=== PATIENT | female | born 1985 | race Caucasian/White ===

== ENCOUNTER 2021-04-03 15:02 | Outpatient (REF) | payer OTHER, SELFPAY ==
[2021-04-03 21:51] LABS: Abs Immature Grans 0.02 10^3/uL (0.0-0.06); Absolute Basophil Count 0.09 10^3/uL (0.0-0.2); Absolute Eosinophil Count 0.22 10^3/uL (0.0-0.7); Absolute Monocyte Count 0.72 10^3/uL (0.1-0.8); Absolute Neutrophil Count 6.51 10^3/uL (1.2-6.7); Basophils % 0.8; HCT 42.4 % (36.0-46.0); HGB 13.7 g/dL (11.2-15.7); Immature Grans % 0.2; Lymphocytes % 30.5; MCH 29.6 pg (27.0-33.0); MCHC 32.3 % (32.0-36.0); MCV 91.6 fL (80-95); MPV 10.1 fL (8.0-11.0); Monocytes % 6.6; Neutrophils % 59.9; Nucleated RBC 0 %; Platelet Count 369 10^3/uL (130-400); RBC 4.63 10^6/uL (3.93-5.22); RDW 12.3 % (11.7-14.6); RDW-SD 41.1 fL; WBC 10.87 10^3/uL (4.4-10.8)
[2021-04-03 21:56] LABS: Absolute Lymphocyte Count 3.32 10^3/uL (1.2-3.4)
[2021-04-03 22:08] LABS: ALT 35 U/L (14-59); AST 20 U/L (15-37); Albumin 4.4 g/dL (3.4-5.0); Alkaline Phosphatase 58 U/L (46-116); Anion Gap 9.9 mmol/L (3-11); BUN 16 mg/dL (7-18); Bilirubin, Total 0.3 mg/dL (0.2-1.0); CO2 28.1 mmol/L (21.0-32.0); CREATININE 0.9 mg/dL (0.55-1.02); Calcium 9.2 mg/dL (8.5-10.1); Chloride 104 mmol/L (98-107); Glucose 87 mg/dL (74-106); Magnesium 2.1 mg/dL (1.8-2.4); Sodium 142 mmol/L (136-145); TSH (W/Ref FT4) 1.07 uIU/mL (0.36-3.74); Total Protein 7.7 g/dL (6.4-8.2)
== END 2021-04-03 15:03 | disposition home or self-care (01) ==
LOC: NCHCN 15:02
PROVIDERS: PCP Pediatrics; Visit Provider Nurse Practitioner Family
DX: R00.2 Palpitations (principal)
CPT/HCPCS: 80053; 83735; 84443; 85025

== ENCOUNTER 2021-06-03 10:42 | Outpatient (REF) | payer OTHER, SELFPAY ==
--- NOTE | 2021-06-03 09:30 | PAPFT_PTH ---
PATIENT: Leonor Cantu LOC: [facility]#:[id number] AGE/SX: 36/F ROOM: RE06/03/[address]: Monet Mahoney : 1985 BED: DIS: 06/03/2021 SPEC #: [id number] RECD: 06/03/21 15:29 STATUS: TANNER JESUS #: [id number] GRISELDA: 06/03/21 09:[address]: Monet Mahoney DEPT: [facility] Cytology RECD BY: Jo Ann Marquez ENTERED: 06/03/21 15:30 SP TYPE: PAPFT OT DR: Unknown,Unknown Tissues: 1 - CX/ENDOCX FOR PAP SMEARS Procedures: PAP THIN PREP/UVM Screening HPV DNA PROBE Comments: [id number] (CHLAMYDIA/GC)
[2021-06-04 15:48] LABS: Chlamydia Result Negative (Negative); GC Result Negative (Negative)
== END 2021-06-03 10:43 | disposition home or self-care (01) ==
LOC: NCHCN 10:42
PROVIDERS: Visit Provider Nurse Practitioner Family
DX: Z12.4 Encounter for screening for malignant neoplasm of cervix (principal); Z11.3 Encounter for screening for infections with a predominantly sexual mode of transmission; Z11.51 Encounter for screening for human papillomavirus (HPV)
CPT/HCPCS: 87491; 87591; 88142; 87624

== ENCOUNTER 2022-09-02 18:41 | Outpatient (REF) | payer BC, SELFPAY ==
[2022-09-02 21:08] LABS: HCT 42.3 % (36.0-46.0); HGB 13.8 g/dL (11.2-15.7); MCH 29.3 pg (27.0-33.0); MCHC 32.6 % (32.0-36.0); MCV 90 fL (80-95); MPV 10.1 fL (8.0-11.0); Platelet Count 375 10^3/uL (130-400); RBC 4.71 10^6/uL (3.93-5.22); RDW 12.3 % (11.7-14.6); RDW-SD 41.1 fL; WBC 9.71 10^3/uL (4.4-10.8)
[2022-09-02 21:30] LABS: Hemoglobin A1C 5.5 % (<5.7)
[2022-09-02 21:32] LABS: Calculated LDL 111 mg/dL (<100); Cholesterol 181 mg/dL (<200); HDL Cholesterol 50 mg/dL (40-60); TSH (W/Ref FT4) 1.37 uIU/mL (0.36-3.74); Triglyceride 103 mg/dL (<150)
== END 2022-09-02 18:42 | disposition home or self-care (01) ==
LOC: NCHCN 18:41
PROVIDERS: Visit Provider Nurse Practitioner Family
DX: N93.9 Abnormal uterine and vaginal bleeding, unspecified (principal); R14.0 Abdominal distension (gaseous); L65.9 Nonscarring hair loss, unspecified; Z13.1 Encounter for screening for diabetes mellitus; Z13.220 Encounter for screening for lipoid disorders
CPT/HCPCS: 80061; 85027; 83036; 84443

== ENCOUNTER 2022-10-05 14:48 | Outpatient (REF) | payer BC, SELFPAY ==
[2022-10-07 09:47] LABS: HBs Antibody, Qual Positive (See Note); HBs Antibody, Quant 12.1 mIU/mL (See Note); Hepatitis B Core Antibody Negative (Negative); Hepatitis B surface Ag Negative (Negative); Hepatitis C Ab w Rflx HCV PCR Negative (Negative)
[2022-10-07 10:00] LABS: HIV-1/2 Ag & Ab Screen Negative (Negative)
== END 2022-10-05 14:49 | disposition home or self-care (01) ==
LOC: NCHCN 14:48
PROVIDERS: Visit Provider Nurse Practitioner Family
DX: N83.291 Other ovarian cyst, right side (principal); Z20.5 Contact with and (suspected) exposure to viral hepatitis; Z11.4 Encounter for screening for human immunodeficiency virus [HIV]; Z11.59 Encounter for screening for other viral diseases
CPT/HCPCS: 86704; 86706; 86803; 87340; 87389

== ENCOUNTER 2022-10-28 04:34 | Outpatient (CLI) | payer BC, SELFPAY ==
[2022-10-28 15:12] LABS: HCT 40.2 % (36.0-46.0); HGB 13.3 g/dL (11.2-15.7); MCH 29.7 pg (27.0-33.0); MCHC 33.1 % (32.0-36.0); MCV 90 fL (80-95); MPV 9.6 fL (8.0-11.0); Platelet Count 334 10^3/uL (130-400); RBC 4.48 10^6/uL (3.93-5.22); RDW 12.2 % (11.7-14.6); RDW-SD 40.9 fL; WBC 12.02 10^3/uL (4.4-10.8)
[2022-10-28 15:50] LABS: Anion Gap 7.6 mmol/L (3-11); BUN 12 mg/dL (7-18); CO2 28.4 mmol/L (21.0-32.0); Chloride 106 mmol/L (98-107); Estimated GFR 74.88 (mL/min/1.73m2); Glucose 99 mg/dL (74-106); Sodium 142 mmol/L (136-145)
[2022-10-28 15:59] LABS: HCG Qual (Serum) Negative
== END 2022-10-28 04:35 | disposition home or self-care (01) ==
LOC: LBO 04:34
PROVIDERS: Visit Provider Obstetrics & Gynecology Gynecology
DX: N83.291 Other ovarian cyst, right side (principal); Z01.818 Encounter for other preprocedural examination; Z01.812 Encounter for preprocedural laboratory examination
CPT/HCPCS: 36415; 80048; 85027; 86850; 86900; 86901; 84703

== ENCOUNTER 2022-10-29 05:58 | Day surgery (SDC) | payer BC, SELFPAY ==
[2022-10-29] VITALS (13 sets, daily range): BP systolic 95–117; BP diastolic 62–80; PULSE 65–79; RESP 10–19; TEMP 36.3–37; O2SAT 90–99; BMI 35.4
[2022-10-29] MEDS: Lactated Ringers 1,000 ML 125 ML IV (06:53)
--- NOTE | 2022-10-29 07:01 | W.ANESPRE ---
General Info Date of Service Date Performed: 10/29/22 Height: 5 ft 6 in Weight: 99.5 kg Body Mass Index (BMI): 35.4 Surgical Procedure: Operation Date: 10/29/22 07:40 Proposed Procedure Side Surgeon p Ovarian Cystectomy Laparotomy/ Bi-Lat Salpingectomy Right Hien Saab MD Meds Allergies and Home Medications Allergies Allergy/AdvReac Type Severity Reaction Status Date / Time No Known Allergies Allergy Verified 10/29/22 06:20 Home Medication Medication Instructions Recorded bupropion HCl 150 mg 24 hr tablet, 150 mg PO HS 09/25/22 extended release levonorgestrel 21 mcg/24 hours (8 1 device intrauterine ONCE 09/25/22 yrs) 52 mg intrauterine device (Mirena) oxycodone-acetaminophen 5 mg-325 1 tab PO Q6H PRN pain #7 tabs 10/28/22 mg tablet (Percocet) Current Visit Medications: Current Medications Generic Name Dose Route Start Last Admin Trade Name Freq PRN Reason Stop Dose Admin Ringer's Solution 1,000 mls @ 125 mls/hr 10/29/22 06:48 10/29/22 06:53 IV 11/28/22 06:47 125 mls/hr INFUSION ALEJANDRO Administration Sodium Chloride 500 mls @ 0 mls/hr 10/29/22 06:49 Saline 500ml Bag IV 11/28/22 06:48 PRN PRN As Directed IV Miscellaneous Supplies 1 each 10/29/22 06:50 Iv Access IV 11/28/22 06:49 DIRECTED ALEJANDRO Sodium Chloride 0 ml 10/29/22 06:49 Normal Saline Flush 10 Ml Syr IVP 11/28/22 06:48 PRN PRN PFSH Active Problems Active Problems: Problem Status Onset Code Screening and evaluation for female sterilization Z30.09 Right ovarian cyst N83.201 IUD (intrauterine device) in place Z97.5 Pelvic pain R10.2 Anxiety F41.9 Depression F32.A Surgical History Surgical History H/O breast surgery breast reduction Tobacco Smoking/Tobacco Use Status: Never Alcohol Alcohol Intake: current Alcohol intake frequency: a few times a month Substance Use Substance use: Never Substance use type: does not use Prental History History 0 Para Hx # Term Pregnancies Multiple births Hx # Pregnancies Ectopic pregnancies AB induced Hx Number of Living Children AB spontaneous Vital Signs and Lab Results Vital Signs Most Recent Vital Signs in EMR: Most Recent Vital Signs Temp Pulse Resp BP Pulse Ox 36.5 C 78 18 113/80 98 10/29/22 06:15 10/29/22 06:15 10/29/22 06:15 10/29/22 06:15 10/29/22 06:15 Lab Results Blood Type / Crossmatch: Patient ABO/Rh O Positive 10/28/22 Antibody Screen NEGATIVE 10/28/22 Complete Blood Count: White Blood Count 12.02 10^3/uL (4.4-10.8) H 10/28/22 14:58 Red Blood Count 4.48 10^6/uL (3.93-5.22) 10/28/22 14:58 Hemoglobin 13.3 g/dL (11.2-15.7) 10/28/22 14:58 Hematocrit 40.2 % (36.0-46.0) 10/28/22 14:58 Platelet Count 334 10^3/uL (130-400) 10/28/22 14:58 Complete Metabolic Panel: Sodium 142 mmol/L (136-145) 10/28/22 14:58 Potassium 4.0 mmol/L (3.5-5.1) 10/28/22 14:58 Chloride 106 mmol/L (98-107) 10/28/22 14:58 Carbon Dioxide 28.4 mmol/L (21.0-32.0) 10/28/22 14:58 BUN 12 mg/dL (7-18) 10/28/22 14:58 Creatinine 1.0 mg/dL (0.55-1.02) 10/28/22 14:58 Est GFR (CKD-EPI 2020) 74.88 (mL/min/1.73m2) 10/28/22 14:58 Calcium 9.0 mg/dL (8.5-10.1) 10/28/22 14:58 Glucose 99 mg/dL (74-106) 10/28/22 14:58 Liver Function Panel: No Data to Display Coagulation Panel: No Data to Display Cardiac Panel: No Data to Display Arterial Blood Gas: No Data to Display Venous Blood Gas: No Data to Display Pancreas Panel: No Data to Display Thyroid Panel: No Data to Display Infectious Disease: HIV (1&2) Ag and Ab, 4th Generation Negative (Negative) 10/05/22 11:15 Hepatitis B Surface Antigen Negative (Negative) 10/05/22 11:15 Hepatitis C Antibody Negative (Negative) 10/05/22 11:15 Blood Cultures: No Data to Display Toxicology Panel: No Data to Display Panel: Serum HCG, Qualitative Negative 10/28/22 14:58 Anesthesia Assessment and Plan Anesthesia History Personal History: No History of Anesthesia Complications Family History: No Family History of Anesthesia Complications Exercise Tolerance Exercise Tolerance: Metabolic Equivalents>4 Pertinent Negatives Pertinent Negatives: No Symptoms of GERD, No Major Cardiovascular Symptoms or Complaints, No Major Pulmonary Symptoms or Complaints and No History of CVA/TIA Cardiac & Pulmonary Exam Cardiac Exam: Normal S1/S2 Heart Sounds Pulmonary Exam: Clear Bilateral Breath Sounds Implantable Cardiac Device Does patient have a Pacemaker or an ICD?: No Airway Exam Known Difficult Airway: No Mallampati Class: 2 Mouth Opening: Normal (> 3cm) Thyromental Distance: Greater than 3 cm Neck Range of Motion: Full ROM Neck Circumference: Normal Teeth Condition: Normal Dentition ASA Classification ASA Score: ASA 2 Emergency Case?: No NPO Status NPO Status: NPO Clears >2 hours, Solids >8 hours Status Status: Negative HCG Anesthesia Plan Resuscitation Status: Full Code Anesthesia Technique: General Anesthesia Airway Planned: Endotracheal Tube Monitors Used: Standard Monitors
[2022-10-29] MEDS: Bupivacaine 0.25% Pres-Free 30 ML VIAL (08:32)
--- NOTE | 2022-10-29 08:32 | FALL_PTH ---
PATIENT: Leonor Cantu LOC: [facility] U#:[id number] AGE/SX: 37/F ROOM: RE10/29/[address]: Hien Saab : 1985 BED: DIS: 10/29/2022 SPEC #: [id number] RECD: 10/29/22 12:48 STATUS: TANNER LEE #: [id number] GRISELDA: 10/29/22 08:[address]: Hien Saab DEPT: Surgical Specimen RECD BY: Jo Ann Marquez ENTERED: 10/29/22 12:49 SP TYPE: Fall OTHR DR: Unknown,Unknown Tissues: 1 - FALLOPIAN TUBE (STERILIZATION) 2 - FALLOPIAN TUBE (STERILIZATION) 3 - OVARY BIOPSY Procedures: GROSS AND MICRO LEVEL 2 GROSS AND MICRO LEVEL 5 Comments: [id number]
--- NOTE | 2022-10-29 09:28 | W.PM.DSUDISC ---
Date of service: 10/29/22 Time of Service: 09:28 Discharge Plan Disposition Patient Disposition: Home Discharge Details Reason For Visit: Tubal sterilization and right ovarian cystectomy Attending Provider: Hien Saab Primary Care Provider: Unknown,Unknown Home Meds and New Rx's Prescriptions: No Action bupropion HCl 150 mg tablet extended release 24 hr 150 mg PO HS Mirena 21 mcg/24 hours (8 yrs) 52 mg intrauterine device 1 device intrauterine ONCE Rx Instructions: as a single dose oxycodone-acetaminophen [Percocet] 5-325 mg tablet 1 tab PO Q6H MDD 4 PRN (Reason: pain) Qty: 7 0RF Discharge Instructions Additional Instructions: You may use Percocet 5/325 1 tablet every 6 hours as needed for severe pain. You also may use ibuprofen 600 mg at the same time that you are using the Percocet. Keep the Steri-Strips on your incisions for 48 hours. You may change the Band-Aids as needed. Keep your appointment in the office for postop check in approximately 2 weeks. Stand Alone Forms: [facility] Post Instrument Technician Apprentice SurgeryW/Incision Activity:: Activity as Tolerated Diet:: As Tolerated Discharge Orders Discharge Orders: Discharge Order (Routine); Ordered 10/29/22 Ordered By: Hien Saab
--- NOTE | 2022-10-29 09:31 | ROE_ITS ---
Date of service: 10/29/22 Time of Service: 09:31 Operative Note Operative Note DATE OF PROCEDURE: 10/29/22 PRE-OP DIAGNOSIS: Undesired fertility. Right-sided dermoid cyst PROCEDURE: Laparoscopic bilateral salpingectomy. Right ovarian cystectomy SURGEON: Hien Saab ASSISTING SURGEON: Amairani Perales ANESTHESIA TYPE: General LMA/ETT Refer to Anesthesia Record ESTIMATED BLOOD LOSS: 0 PATHOLOGY: other (Bilateral fallopian tubes, right dermoid cyst) COMPLICATIONS: None Patient was transported to: PACU Patient's condition: stable Indications: 37-year-old G0 female who requested permanent sterilization at the time of a laparoscopic right sided dermoid cystectomy. She currently has a Mirena IUD in place for contraception and for control of menorrhagia. She wishes to maintain the Mirena IUD. Findings: Smooth-walled enlarged right ovarian cyst occupying the posterior cul-de-sac. No ovarian torsion present. The cyst leaked liquid fat during the procedure. Dark hair was noted through the punctate opening. Left adnexa normal in appearance. Uterus small, irreg contour. Normal upper abdomen. Mirnea IUD string present at the external cervical os Procedure Description: Patient was taken to the operating room where she was placed in the dorsal supine position and endotracheal anesthesia was administered without difficulty. SCDs were in place. She was placed in the dorsal lithotomy position in [place] stirrups in a neurologically neutral position. A surgical timeout was performed. She was prepped and draped in the usual sterile fashion. A conrad catheter was placed to gravity drainage. A [employer] uterine manipulator was inserted into the uterine cavity and left in place for the remainder of the case. The umbilical fold was infiltrated with 0.25% Marcaine without epinephrine and 12 mm vertical skin incision was made in the umbilicus. Through this incision a varies needle connected to carbon dioxide gas was inserted into the abdomen and intra-abdominal placement confirmed by drop in the intra- abdominal pressure. Once a pneumoperitoneum was established a 12 mm Visiport trocar was introduced into the abdomen under direct visualization. The patient was then placed in Trendelenburg and 2 sites on the abdomen approximately 6 cm diagonal to the right of and left of the umbilical incision were transilluminated, the skin infiltrated with 0.25% Marcaine, incised with a scalpel and under direct visualization two 5 mm ports were placed in the right and left lower quadrants respectively. The abdomen was inspected with the above-noted findings. The left fallopian tube located and followed out to its fimbriated end and a LigaSure electrocautery device was used to clamp cauterize and transect the fimbria from the left mesosalpinx to the level of the left uterine cornua. The left fallopian tube was then delivered through the 12 mm umbilical port and passed off of the operative field. A similar technique was carried out on the right fallopian tube with care taken to dissect the fallopian tube from the serosal surface of the inferior portion of the dermoid cyst. Once it had been removed from the mesosalpinx and transected from the uterine cornua the right fallopian tube was then delivered through the umbilical port. Both fallopian tube pedicles were inspected and noted to be hemostatic. The serosal surface of the ovarian cyst was undermined, clamped, cauterized and transected caudal to cephalad along the length of the right ovarian cyst. The cyst wall was then peeled off of the underlying cyst until the majority of the cyst was mobilized. A 3mm opening along the upper portion of the cyst leaked sma ll amount of liquid fat. The opening was closed with laparoscopic graspers and the remaining cyst was freed from the ovarian capsule. The cyst was then placed in an endo-catch bag and and delivered through the umbilical port, intact. The pelvis was then copiously irrigated with normal saline which was then suction aspirated. The pedicles were then inspected, noted to be hemostatic and under direct visualization the two 5 mm ports were removed, pneumoperitoneum reduced, and the umbilical port removed. The fascia of the umbilical port site was reapproximated with interrupted suture of 0 Vicryl. The skin of all trocar sites was reapproximated with 4-0 Monocryl and covered with steri-strips and bandaids. Instruments were removed from her vagina and the conrad catheter discontinued. She was placed in the supine position, awakened, extubated and transported to recovery area in stable condition. All sponge lap needle counts are correct x2.
[2022-10-29] MEDS: HYDROmorphone 2 MG/ML SYR IVP ×3 (09:59→10:21)
[2022-10-29] MEDS: Normal Saline 10 ML VIAL IJ (09:59)
[2022-10-29] MEDS: fentaNYL 100 MCG/2 ML VIAL IVP (10:44)
--- NOTE | 2022-10-29 11:38 | W.ANESPOSTOP ---
Postoperative Evaluation Date, Time and Location Date Performed: 10/29/22 Time Performed: 11:38 Patient Location: Day Surgery Unit Vital Signs Most Recent Imported Vital Signs: Most Recent Vital Signs Temp Pulse Resp BP Pulse Ox 36.5 C 70 17 97/66 L 96 10/29/22 11:08 10/29/22 11:08 10/29/22 11:08 10/29/22 11:08 10/29/22 11:08 Pain Score Most Recent Pain Score: Most Recent Pain Score Pain Level 4 10/29/22 11:08 Assessment Mental Status: Awake (Alert & Oriented to Patient Baseline) Airway and Respiratory Function: Patent airway with normal (patient baseline) respiratory exam Cardiovascular Function: Hemodynamically Stable Hydration Status: Adequately Hydrated Nausea & Vomiting: No Nausea or Vomiting Pain: Pt. Denies Any Pain Peripheral Nerve Block: Patient did not receive a nerve block
[2022-10-29] MEDS: oxyCODONE 5 mg/Acetaminophen 325 mg TAB PO (11:54)
== END 2022-10-29 12:52 | disposition home or self-care (01) ==
PROVIDERS: Visit Provider Obstetrics & Gynecology Gynecology
PROC: (CPT 58925; principal; 2022-10-29 07:30)
DX: Z30.2 Encounter for sterilization (principal); D27.0 Benign neoplasm of right ovary
CPT/HCPCS: 58661; 58662; 81025; 88305; 88302; 88307; J0131; J1100; J1170; J2250; J2405; J3010

== ENCOUNTER 2022-10-30 23:28 | Observation (INO) | payer BC, SELFPAY ==
[2022-10-31 01:50] VITALS: BP 116/77; PULSE 112; RESP 20; TEMP 36.8; O2SAT 97
[2022-10-31 01:53] VITALS: BP 116/77; PULSE 112; RESP 20; TEMP 36.8; O2SAT 97
[2022-10-31] MEDS: Lactated Ringers 1,000 ML 125 ML IV ×2 (02:10→09:54)
[2022-10-31] MEDS: Ketorolac 30 MG/ML VIAL IVP ×3 (02:10→13:37)
--- NOTE | 2022-10-31 02:30 | HPE_ITS ---
Date of service: 10/31/22 Time of Service: 02:30 Assessment and Plan Assessment and plan (1) H/O ovarian cystectomy: Status: Acute (2) H/O bilateral salpingectomy: Status: Acute (3) RUQ abdominal pain: Status: Acute Assessment and plan: New onset today. Unclear etiology. Pain is localized to RUQ. Will continue to follow VS, including temp and administer IV Toradol and Dilaudid PRICING CONSULTANT. Repeat CBC CMP in am. Gen Surgery consult if pain not improving. Sips of H2O. History of Present Illness History of Present Illness Chief Complaint: RUQ pain Narrative: Pt is a 37yo G0 female s/p uncomplicated bilateral laparoscopic salpingectomy and removal of right sided dermoid cyst on at [facility] on 09/28/22. She was discharged to home from [facility] with Rx for Percocet 5/325mg and Ibuprofen 600mg every 6 hours as needed for pain. No issues until the afternoon of POD 1 when developed sharp RUQ pain that became intractable and worse with inspiration and supine position. No emesis. + Flatus, no BM. No fever or chills. Pt underwent eval at [facility] where CT showed normal RUQ, trace of pleural fluid, potential ileus of proximal small bowel. Afebrile. WBC 16.4, Abs Neut 10.8, Lactic Acid 2.6. Nl LFTs. The ER provider at [facility] felt that she is not appropriate for discharge to home and had ask the general surgeon at the hospital to consider admitting the patient for observation. Accepted the patient in transfer from [facility] for admission to the center for observation. Review of Systems Narrative: Pt reports little relief from 2.5 mg of IV Diluadid she received at [facility]. All systems reviewed & are unremarkable except as noted in HPI and below Constitutional Constitutional: Reports as per HPI Gastrointestinal Gastrointestinal: Reports abdominal pain (RUQ below rib cage) and Denies diarrhea Comments: incisions have original bandaids in place. Genitourinary Comments: Minimal vaginal bleeding Musculoskeletal Musculoskeletal: Reports system reviewed and no additional complaints, except as documented Psychiatric Comments: Had been well until onset of RUQ pain PFSH All Active Problems (Updated 10/31/22 @ 03:01 by Hien Saab MD) RUQ abdominal pain (Acute) H/O ovarian cystectomy (Acute) 10/29/22. Laparoscopic: R dermoid cyst. H/O bilateral salpingectomy (Acute) 10/29/22 for purpose of sterilization Right ovarian cyst (Acute) IUD (intrauterine device) in place (Acute) Mirena for contraception. Pelvic pain (Acute) Anxiety (Chronic) Depression (Chronic) Surgical History (Updated 10/31/22 @ 02:49 by Hien Saab MD) H/O breast surgery breast reduction Social History (Updated 09/25/22 @ 21:40 by Hien Saab MD) Smoking/Tobacco Use Status: Never Smoking risk assessment performed?: Yes Alcohol Intake: current Alcohol Intake frequency: a few times a month Drug use: Never Substance use type: does not use Household members: significant other and other Details: Derick Number of Children: 0 Education Level: college Details: BS in science. current occupation: Industrial Relations Worker. Sexually active: Yes Do you feel safe at home: Yes Do you feel safe in your relationship?: Yes History History 0 Para Hx # Term Pregnancies Multiple births Hx # Pregnancies Ectopic pregnancies AB induced Hx Number of Living Children AB spontaneous Meds Allergies and Home Medications Allergies Allergy/AdvReac Type Severity Reaction Status Date / Time No Known Allergies Allergy Verified 10/29/22 06:20 Home Medications Medication Instructions Recorded Confirmed Type bupropion HCl 150 mg 24 hr tablet, 150 mg PO HS 09/25/22 10/31/22 History extended release levonorgestrel 21 mcg/24 hours (8 1 device intrauterine ONCE 09/25/22 10/31/22 History yrs) 52 mg intrauterine device (Mirena) oxycodone-acetaminophen 5 mg-325 1 tab PO Q6H PRN pain #7 tabs 10/28/22 10/31/22 Rx mg tablet (Percocet) Exam Narrative Exam Narrative: Sitting in bed in semi-fowlers position. Grimacing and breathing shallow rapid breaths. Const General: in distress Nutritional Appearance: obese Orientation: alert, awake and oriented x3 Resp Effort & Inspection: able to speak in complete sentences and tachypneic (during increase in pain) Auscultation: clear to auscultation bilaterally Percussion: percussion normal Cardio Palpation: normal PMI Rate: regular rate Rhythm: regular rhythm Pulses: normal peripheral pulses GI Inspection: no abdominal wall ecchymosis, non-distended and incision (dressings covering trochar sites.) Palpation: soft, no hepatosplenomegaly (Pt's RUQ tender to touch, no referred pain), firm and tender Auscultation: hypoactive bowel sounds Rectal Exam - female: deferred General: deferred Back/Spine/Pelvis Back: no CVA tenderness Skin General skin exam: no rashes or lesions noted Extrem General: normal to inspection Psych Appearance: other (Pt grimacing in pain. Eyes closed, focusing on breathing thru pain) Mental Status: mental status grossly normal Mood: anxious mood Affect: normal affect Attitude: cooperative Thought Process: normal Thought Content: normal Insight: insight good Judgment: judgment good Results Imaging Abdomen CT scan report/results: report reviewed Labs 10/31/22 06:00 10/31/22 06:00 Labs: I reviewed report of CMP and CBC. Last Vital Signs Temp 98.2 F 10/31/22 01:53 Pulse 112 H 10/31/22 01:53 Resp 20 10/31/22 01:53 BP 116/77 10/31/22 01:53 Pulse Ox 97 10/31/22 01:53 PAWSS Pt Consumed Any Amount of Alcohol Within the Last 30 days OR had positive JORDY Upon Admission: No Time Spent Time spent with Patient: 40-54 minutes Time was spent: preparing to see the patient(eg.review tests), obtaining and/or reviewing separately otained hiistory, ordering medications,tests, procedures and counseling the patient
[2022-10-31] MEDS: Normal Saline Flush 10 ML SYR ×3 (02:34→06:44)
[2022-10-31] MEDS: HYDROmorphone 2 MG/ML SYR IVP ×2 (03:21→06:30)
[2022-10-31 03:30] VITALS: BP 119/73; PULSE 100; RESP 16; TEMP 36.8; O2SAT 97
[2022-10-31 06:00] VITALS: BP 114/76; PULSE 85; RESP 16; TEMP 36.8; O2SAT 97
[2022-10-31 06:13] LABS: HGB 11.5 g/dL (11.2-15.7); MCH 29.7 pg (27.0-33.0); MCHC 32.9 % (32.0-36.0); MCV 90 fL (80-95); MPV 9.5 fL (8.0-11.0); Platelet Count 257 10^3/uL (130-400); RBC 3.87 10^6/uL (3.93-5.22); RDW 12.7 % (11.7-14.6); RDW-SD 41.6 fL
[2022-10-31 06:40] LABS: ALT 16 U/L (14-59); AST 7 U/L (15-37); Albumin 3.2 g/dL (3.4-5.0); Alkaline Phosphatase 56 U/L (46-116); Anion Gap 7.3 mmol/L (3-11); BUN 7 mg/dL (7-18); Bilirubin, Total 0.5 mg/dL (0.2-1.0); CO2 26.7 mmol/L (21.0-32.0); CREATININE 0.7 mg/dL (0.55-1.02); Calcium 8.1 mg/dL (8.5-10.1); Chloride 105 mmol/L (98-107); Estimated GFR 114.88 (mL/min/1.73m2); Glucose 113 mg/dL (74-106); Potassium 3.8 mmol/L (3.5-5.1); Sodium 139 mmol/L (136-145); Total Protein 6.3 g/dL (6.4-8.2)
[2022-10-31 07:16] VITALS: BP 112/77; PULSE 85; RESP 18; TEMP 36.8; O2SAT 97
[2022-10-31] MEDS: Docusate Sodium 100 MG CAP PO (08:03)
[2022-10-31] MEDS: oxyCODONE 5 mg/Acetaminophen 325 mg TAB 1 TAB PO (10:40)
[2022-10-31 12:06] VITALS: BP 121/79; PULSE 87; RESP 20; TEMP 36.8; O2SAT 98
--- NOTE | 2022-10-31 13:30 | DSE_ITS ---
Date of service: 10/31/22 Time of Service: 13:31 DS: Diagnosis Discharge Diagnosis (1) H/O ovarian cystectomy: Status: Acute (2) H/O bilateral salpingectomy: Status: Acute (3) RUQ abdominal pain: Status: Acute Discharge Plan Disposition Patient Disposition: Home Condition: Improving Discharge Details Reason For Visit: Abdomen Pain,Partial Illeus Admit Date/Time: 10/31/22 01:36 Admit Provider: Hien Saab Attending Provider: Hien Saab Primary Care Provider: Unknown,Unknown Hospital Course Hospital Course: Pt is a 37yo G0 female s/p uncomplicated bilateral laparoscopic salpingectomy and removal of right sided dermoid cyst on at [facility] on 09/28/22. She was discharged to home from [facility] with Rx for Percocet 5/325mg and Ibuprofen 600mg every 6 hours as needed for pain. No issues until the afternoon of POD 1 when developed sharp RUQ pain that became intractable and worse with inspiration and supine position. No emesis. + Flatus, no BM. No fever or chills. Pt underwent eval at [facility] where CT showed normal RUQ, trace of pleural fluid, potential ileus of proximal small bowel. Afebrile. WBC 16.4, Abs Neut 10.8, Lactic Acid 2.6. Nl LFTs. She was transfered to [facility] and observed overnight and provided Toradol and additional pain control. By the morning of POD3 she her pain had subsided to a 3, was tolerating regular diet and had flatus and she was able to walk in the corridor unassisted. She was discharged to home with diagnosis of postop laparoscopy pain secondary to CO2 gas irritation of her R sided diaphragm. She will have her Percocet refilled and continue to take Ibuprofen. Pt will keep her previously scheduled postop appointment in approximately 2 weeks.. Home Meds and New Rx's Prescriptions: No Action bupropion HCl 150 mg tablet extended release 24 hr 150 mg PO HS Mirena 21 mcg/24 hours (8 yrs) 52 mg intrauterine device 1 device intrauterine ONCE Rx Instructions: as a single dose oxycodone-acetaminophen [Percocet] 5-325 mg tablet 1 tab PO Q6H MDD 4 PRN (Reason: pain) Qty: 7 0RF Discharge Instructions Activity:: Activity as Tolerated Equipment/Supplies:: No Equipment Needed Diet:: As Tolerated Discharge Orders Discharge Orders: Discharge Order (Routine); Ordered 10/31/22 Ordered By: Hien Saab DS: Summary Summary Time spent discussing smoking cessation with patient: more than 10 minutes Time Spent with Patient providing and/or coordinating discharge services: Less than 30 minutes Status at Discharge Functional status at discharge: independent ambulation Overall status at discharge: patient is progressing back to baseline Mental Status: mental status grossly normal Speech and Movement: speech and movement normal Mood: anxious mood Affect: normal affect Exam Const General: no acute distress (More comfortable sitting in bedside chair) Nutritional Appearance: obese Orientation: alert, awake and oriented x3 Neck Neck: normal visual inspection Resp Effort & Inspection: normal respiratory effort and able to speak in complete sentences Auscultation: clear to auscultation bilaterally Cardio Rate: regular rate Rhythm: regular rhythm GI Inspection: normal to inspection, no abdominal wall ecchymosis and incision (Remain covered with Steri-Strips and Band-Aids) Palpation: soft, no hepatosplenomegaly, no guarding and tender in the RUQ Auscultation: normal bowel sounds Rectal Exam - female: deferred General: deferred Skin General skin exam: no rashes or lesions noted Extrem General: normal to inspection Psych Appearance: grossly normal Mental Status: mental status grossly normal Speech and Movement: speech and movement normal Mood: anxious mood Affect: normal affect DS: Data Vitals/I&O Vitals and I&O: Vital Signs Temperature 98.2 F 10/31/22 12:06 Temperature Source Oral 10/31/22 12:06 Pulse 87 10/31/22 12:06 Pulse Rhythm Regular 10/31/22 07:16 Respiratory Rate 20 10/31/22 12:06 Respiratory Effort Normal, Non-Labored 10/31/22 07:16 Respiratory Depth Normal 10/31/22 07:16 Respiratory Pattern Normal 10/31/22 07:16 Blood Pressure 121/79 10/31/22 12:06 Pulse Oximetry 98 10/31/22 12:06 Oxygen Delivery Method Room Air 10/31/22 12:06 Oxygen Flow Rate 0 10/31/22 12:06 Pain Level 2 10/31/22 12:06 Intake & Output 10/30/22 10/31/22 10/31/22 23:59 11:59 23:59 Intake Total 966.667 / 966.667 Output Total 700 / 1600 900 / 1600 Balance 266.667 / -633.333 -900 / -633.333 Weight 220 lb 7.396 oz Intake: IV 966.667 / 966.667 Output: Urine 700 / 1600 900 / 1600 Other: Urine Color Yellow Yellow Urine Appearance Clear Clear Urine Odor None None Data Completed and Pending Labs on day of discharge: Labs from last 24 hours 10/31/22 10/31/22 06:00 06:00 WBC 13.20 H RBC 3.87 L Hgb 11.5 Hct 35.0 L MCV 90 MCH 29.7 MCHC 32.9 RDW 12.7 Plt Count 257 MPV 9.5 Sodium 139 Potassium 3.8 Chloride 105 Carbon Dioxide 26.7 Anion Gap 7.3 BUN 7 Creatinine 0.7 Est GFR (CKD-EPI 2020) 114.88 Glucose 113 H Calcium 8.1 L Total Bilirubin 0.5 AST 7 L ALT 16 Alkaline Phosphatase 56 Total Protein 6.3 L Albumin 3.2 L PFSH All Active Problems (Updated 10/31/22 @ 03:01 by Hien Saab MD) RUQ abdominal pain (Acute) H/O ovarian cystectomy (Acute) 10/29/22. Laparoscopic: R dermoid cyst. H/O bilateral salpingectomy (Acute) 10/29/22 for purpose of sterilization Right ovarian cyst (Acute) IUD (intrauterine device) in place (Acute) Mirena for contraception. Pelvic pain (Acute) Anxiety (Chronic) Depression (Chronic) Surgical History (Updated 10/31/22 @ 02:49 by Hien Saab MD) H/O breast surgery breast reduction Social History (Updated 09/25/22 @ 21:40 by Hien Saab MD) Smoking/Tobacco Use Status: Never Smoking risk assessment performed?: Yes Alcohol Intake: current Alcohol Intake frequency: a few times a month Drug use: Never Substance use type: does not use Household members: significant other and other Details: Derick Number of Children: 0 Education Level: college Details: BS in science. current occupation: Security Program Manager. Sexually active: Yes Do you feel safe at home: Yes Do you feel safe in your relationship?: Yes History History 0 Para Hx # Term Pregnancies Multiple births Hx # Pregnancies Ectopic pregnancies AB induced Hx Number of Living Children AB spontaneous Time Spent with Patient Time Spent with Patient: <45 minutes Time was spent: preparing to see the patient(eg.review tests), obtaining and/or reviewing separately otained hiistory and ordering medications,tests, procedures
== END 2022-10-31 13:55 | disposition home or self-care (01) ==
PROVIDERS: Admitting Provider Obstetrics & Gynecology Gynecology; Visit Provider Obstetrics & Gynecology Gynecology
DX: T81.89XA Other complications of procedures, not elsewhere classified, initial encounter (principal); R10.11 Right upper quadrant pain; F41.9 Anxiety disorder, unspecified; F32.A Depression, unspecified; Z98.890 Other specified postprocedural states; Y83.8 Other surgical procedures as the cause of abnormal reaction of the patient, or of later complication, without mention of misadventure at the time of the procedure
CPT/HCPCS: 36415; 80053; 85027; J1170; J1885

== ENCOUNTER 2023-11-29 14:54 | Outpatient (REF) | payer BC, SELFPAY ==
[2023-11-29 22:14] LABS: FREE T4 0.91 ng/dL (0.76-1.46); TSH 1.51 uIU/Ml (0.36-3.74)
== END 2023-11-29 14:55 | disposition home or self-care (01) ==
LOC: NCHCN 14:54
PROVIDERS: PCP Nurse Practitioner Family; Visit Provider Nurse Practitioner Family
DX: E04.1 Nontoxic single thyroid nodule (principal)
CPT/HCPCS: 84439; 84443

== ENCOUNTER 2024-09-27 09:10 | Outpatient (REF) | payer BC, SELFPAY ==
[2024-09-27 16:30] LABS: Calculated LDL 127 mg/dL (<100); Cholesterol 192 mg/dL (<200); HDL Cholesterol 57 mg/dL (>or=50); TSH (W/Ref FT4) 1.01 uIU/mL (0.36-3.74); Triglyceride 41 mg/dL (<150)
[2024-09-27 18:01] LABS: Hemoglobin A1C 5.5 % (<5.7)
[2024-09-29 06:29] LABS: Apolipoprotein B, S 89 mg/dL
== END 2024-09-27 09:11 | disposition home or self-care (01) ==
LOC: NCHCN 09:10
PROVIDERS: PCP Nurse Practitioner Family; Visit Provider Nurse Practitioner Family
DX: E78.5 Hyperlipidemia, unspecified (principal)
CPT/HCPCS: 80061; 82172; 83036; 84443